=== PATIENT | female | born 1925 | race Caucasian/White ===

== ENCOUNTER 2016-12-29 00:29 | Emergency (ER) | payer OTHER ==
[2016-12-29] MEDS ORDERED: SILVER NITRATE APPLICATOR 1 APPL TP ONE (00:34)
[2016-12-29] MEDS ORDERED: OXYMETAZOLINE 30 ML NASAL SPRAY ONE (00:34)
[2016-12-29 00:37] VITALS: O2SAT 95
[2016-12-29] MEDS ORDERED: COCAINE HCL 4% 4 ML BTL TP ONE ×2 (00:38→01:06)
--- NOTE | 2016-12-29 00:39 | EDPHY ---
H & P Stated Complaint: nose bleed Time Seen by Provider: 12/29/16 00:32 HPI/ROS: CHIEF COMPLAINT: Epistaxis HISTORY OF PRESENT ILLNESS: Patient is an 89-year-old female who is brought to the emergency department by EMS for epistaxis. She states that this is her 2nd bloody nose this week. Her states that it is her 3rd. She takes aspirin daily but no other blood thinners. No fevers. No trauma. No shortness of breath. No history of coagulopathy. It is only from the left nares. She does not have any bleeding the right side or in her throat. She was given Afrin and a nasal clamp by EMS and is now stopped. EMS reports that there was not much blood on scene. REVIEW OF SYSTEMS: Constitutional: denies: chills, fever, recent illness, recent injury EENTM: See HPI Respiratory: denies: cough, shortness of breath Cardiac: denies: chest pain, irregular heart rate, lightheadedness, palpitations Gastrointestinal/Abdominal: denies: abdominal pain, diarrhea, nausea, vomiting, blood streaked stools Genitourinary: denies: dysuria, frequency, hematuria, pain Musculoskeletal: denies: joint pain, muscle pain Skin: denies: lesions, rash, jaundice, bruising Neurological: denies: headache, numbness, paresthesia, tingling, dizziness, weakness Hematologic/Lymphatic: denies: blood clots, easy bleeding, easy bruising Immunologic/allergic: denies: HIV/AIDS, transplant EXAM: GENERAL: Well-appearing, well-nourished and in no acute distress. HEAD: Atraumatic, normocephalic. EYES: Pupils equal round and reactive to light, extraocular movements intact, sclera anicteric, conjunctiva are normal. ENT: TMs normal, left nares with dry blood over septum , oropharynx clear without exudates. Moist mucous membranes. NECK: Normal range of motion, supple without lymphadenopathy or JVD. LUNGS: Breath sounds clear to auscultation bilaterally and equal. No wheezes rales or rhonchi. HEART: Regular rate and rhythm without murmurs, rubs or gallops. ABDOMEN: Soft, nontender, normoactive bowel sounds. No guarding, no rebound. No masses appreciated. BACK: No CVA tenderness, no spinal tenderness, step-offs or deformities EXTREMITIES: Normal range of motion, no pitting or edema. No clubbing or cyanosis. NEUROLOGICAL: Cranial nerves II through XII grossly intact. Normal speech, normal gait. 5/5 strength, normal movement in all extremities, normal sensation PSYCH: Normal mood, normal affect. SKIN: Warm, dry, normal turgor, no visible rashes or lesions. Source: Patient, EMS Exam Limitations: No limitations - Personal History Current Tetanus/Diphtheria Vaccine: Yes Current Tetanus Diphtheria and Acellular Pertussis (TDAP): Yes - Medical/Surgical History Hx Asthma: No Hx Chronic Respiratory Disease: No Hx Diabetes: No Hx Cardiac Disease: No Hx Renal Disease: No Hx Cirrhosis: No Hx Alcoholism: No Hx HIV/AIDS: No Hx Splenectomy or Spleen Trauma: No Other PMH: osterophroisi, thyroid, Breast CA - Family History Significant Family History: No pertinent family hx - Social History Smoking Status: Never smoked Alcohol Use: Sober Drug Use: None Constitutional: Initial Vital Signs Temperature (C) 36.8 C 12/29/16 00:34 Heart Rate 83 12/29/16 00:34 Respiratory Rate 16 12/29/16 00:34 Blood Pressure 161/82 H 12/29/16 00:34 O2 Sat (%) 95 12/29/16 00:34 O2 Delivery Mode Room Air Allergies/Adverse Reactions: No Known Allergies Allergy (Unverified 12/29/16 00:33) Home Medications: Medication Instructions Recorded Aspirin 81mg 07/23/09 Medical Decision Making Procedures: Patient's nose was instilled with Afrin in both nares and clamp place for 20 minutes. Bleeding was controlled with this. I then anesthetized it with cocaine soaked cotton ball and cauterized 2 sticks of silver nitrate. Some bleeding returned. It was then clamped again and bleeding resolved. ED Course/Re-evaluation: Patient tolerated the procedure well. She is feeling much better. We will have her road test. we discussed indications for returning and steps to take at home if it returns. 1:53 a.m. the patient did well on her road test and is ready to go. Differential Diagnosis: Partial list of the Differential diagnosis considered include but were not limited to; anterior epistaxis, posterior epistaxis and although unlikely based on the history and physical exam, I also considered cancer, trauma, infection. I discussed these differential diagnoses and the plan with the patient as well as the usual and expected course. The patient understands that the diagnosis is provisional and that in medicine we are not always correct and that further workup is often warranted. Usual and customary warnings were given. All of the patient's questions were answered. The patient was instructed to return to the emergency department should the symptoms at all worsen or return, otherwise to followup with the physician as we discussed. - Data Points Medications Given: Discontinued Medications Cocaine HCl (Cocaine Hcl) 1 keisha TP EDNOW ONE Stop: 12/29/16 01:07 Last Admin: 12/29/16 01:07 Dose: Not Given Departure - Departure Disposition: Home, Routine, Self-Care Clinical Impression: Acute anterior epistaxis Condition: Fair Instructions: Nosebleed (ED) Referrals: Patient,NotPresent [Unknown] - As per Instructions Frandy Roman MD [Medical Doctor] - As per Instructions
[2016-12-29 02:13] VITALS: BP 141/82; PULSE 76; RESP 18; TEMP 98.1
== END 2016-12-29 02:00 | disposition home or self-care (01) ==
LOC: EDUNIT#
PROC: 2Y41X5Z Packing of Nasal Region using Packing Material (ICD-10-PCS; principal; 2016-12-29)
DX: R04.0 Epistaxis (principal); Z85.3 Personal history of malignant neoplasm of breast